=== PATIENT | male | born 1980 | race Caucasian/White ===

== ENCOUNTER 2019-01-21 21:50 | Emergency (ER) | payer BC ==
[~2019-01-21] VITALS: Ht 182.9 cm; Wt 72.7 kg
[2019-01-21 21:52] VITALS: Ht 182.9 cm; Wt 72.7 kg
[2019-01-21] MEDS ORDERED: ZOFRAN ODT4 MG/UDTAB PO (22:42)
[2019-01-21] MEDS ORDERED: LOMOTIL 2.5-0.1 EAC1 PO (22:42)
[2019-01-21 23:21] VITALS: BP 135/74
== END 2019-01-21 23:24 | disposition home or self-care (01) ==
LOC: D.ER 21:50
DX: R11.2 Nausea with vomiting, unspecified (principal); R10.9 Unspecified abdominal pain; R19.7 Diarrhea, unspecified

== ENCOUNTER 2019-08-20 18:32 | Day surgery (SDC) | payer BC ==
[~2019-08-20] VITALS: Ht 182.9 cm; Wt 72.7 kg
[~2019-08-20 18:32] MED LIST: LOMOTIL 2.5-0.1 EAC1 PO; ZOFRAN ODT4 MG/UDTAB PO
[2019-08-20 18:38] VITALS: Ht 182.9 cm; Wt 72.7 kg
[2019-08-20 19:07] LABS: BASOPHILS 0.7 % (0-2); HEMATOCRIT 42.6 % (42.0-54.0); HEMOGLOBIN 14.2 g/dL (13.5-17.5); IMMATURE GRANULOCYTES 0.1 % (0-5); LYMPHOCYTES 41.6 % (15-50); MCH 29.6 pg (26.0-34.0); MCHC 33.3 g/dL (31.0-37.0); MCV 88.9 fL (80.0-100.0); MEAN PLATELET VOLUME 10.8 fL (7.4-10.4); NEUTROPHILS 45.6 % (40-80); PLATELET COUNT 200 10x3/uL (130-400); RBC 4.79 10x6/uL (4.20-6.10); RDW 12.2 % (11.5-14.5); WBC 7.6 10x3/uL (4.8-10.8)
[2019-08-20 19:15] LABS: CALC OSMOLALITY 278 mosm/kg (275-300); CARBON DIOXIDE 32.7 mmol/L (21.0-32.0); CHLORIDE - SERUM 103 mmol/L (98-107); GLUCOSE 99 mg/dL (74-106); POTASSIUM - SERUM 3.9 mmol/L (3.5-5.1); SODIUM 140 mmol/L (136-145); UREA NITROGEN 13 mg/dL (7-18); eGFR NON AFRICAN AMERICAN 89 mL/min (90-120)
[2019-08-20 19:16] LABS: INR 0.97 (0.85-1.17); PROTIME 12.8 SECONDS (11.6-15.0)
[2019-08-20 19:22] LABS: ALBUMIN 4.3 g/dL (3.4-5.0); ALKALINE PHOSPHATASE 75 U/L (30-120); ALT (SGPT) 23 U/L (10-68); BILIRUBIN - TOTAL 0.74 mg/dL (0.2-1.3); PROTEIN - SERUM 7.6 g/dL (6.4-8.2)
[2019-08-20 22:43] VITALS: BP 114/76
== END 2019-08-20 22:43 | disposition home or self-care (01) ==
LOC: D.ER 18:32 → D.OPS 20:48 → D.ER 22:43
PROVIDERS: Family Medicine; ATTEND Internal Medicine Gastroenterology
DX: R13.10 Dysphagia, unspecified (principal); K22.2 Esophageal obstruction; K20.9 Esophagitis, unspecified; R09.89 Other specified symptoms and signs involving the circulatory and respiratory systems